=== PATIENT | female | born 1985 | race Caucasian/White ===

== ENCOUNTER 2024-12-22 12:09 | Inpatient (IN) | payer BC, SELFPAY ==
[2024-12-22] VITALS (51 sets, daily range): BP systolic 87–185; BP diastolic 56–111; BMI 34.6; BMI 34.5
[2024-12-22] MEDS: ZOFRAN 4 MG IV ×2 (00:58→05:24)
[2024-12-22] MEDS: DILAUDID 1 MG IV (00:59)
[2024-12-22 01:18] LABS: % Basophils 0.3 % (0-2); % Eosinophils 0.7 % (0-6); % Immature Granulocytes 0.4 % (0-0.5); % Lymphocytes 20.3 % (20.5-51.1); % Monocytes 4.9 % (1.7-9.3); % Neutrophils 73.4 % (42.2-75.2); Absolute Basophils 0.1 10^3/uL (0-0.2); Absolute Eosinophils 0.1 10^3/uL (0-0.7); Absolute Immature Granulocytes 0.1 10^3/uL (0-0.05); Absolute Lymphocytes 3.7 10^3/uL (1.2-3.4); Absolute Monocytes 0.9 10^3/uL (0.1-0.6); Absolute Neutrophils 13.2 10^3/uL (1.4-6.5); Hematocrit 44.3 % (37.0-47.0); Hemoglobin 15.8 g/dL (12.0-16.0); Mean Corp Hgb Conc. 35.7 g/dL (33.0-37.0); Mean Corpuscular Hgb 29.5 pg (27.0-31.0); Mean Corpuscular Volume 82.8 fL (81.0-99.0); Mean Platelet Volume 9.6 fL (7.4-10.4); Nucleated Red Blood Cells % 0 %; Platelet Count 237 10^3/uL (130-400); Red Blood Cell Count 5.35 10^6/uL (4.20-5.40); Red Cell Dist. Width 12.7 % (11.5-14.5)
[2024-12-22 01:22] LABS: ALT (SGPT) 25 U/L (0-35); AST (SGOT) 32 U/L (14-36); Albumin 5.3 g/dl (3.5-5.0); Alkaline Phosphatase 120 U/L (38-126); Blood Urea Nitrogen 11 mg/dl (7-17); Calcium 10.2 mg/dl (8.4-10.2); Carbon Dioxide 20 mmol/L (22-30); Chloride 104 mmol/L (98-107); Estimated Creatinine Clearance 110 ml/min; Glucose 154 mg/dl (70-99); Lipase 277 U/L (23-300); Potassium 3.4 mmol/L (3.5-5.1); Sodium 142 mmol/L (135-145); Total Bilirubin 1.1 mg/dl (0.2-1.3); Total Protein 8.8 g/dl (6.3-8.2); eGFR > 60.00
[2024-12-22 01:23] LABS: HCG, Serum Qualitative Screen Negative
[2024-12-22] MEDS: DILAUDID 0.5 MG IV ×3 (01:51→09:35)
[2024-12-22] MEDS: TORADOL 15 MG IV ×2 (02:20→04:50)
--- NOTE | 2024-12-22 02:47 | ED.GENMED ---
History of Present Illness
General
Chief Complaint: Abdominal Pain
Source: patient
Exam Limitations: none
Time Seen by Provider: 12/22/24 00:55
Nursing documentation reviewed up to this point in time: agreed with
History of Present Illness
History of Present Illness:
39-year-old female presents to the emergency department with left lower quadrant abdominal pain and nausea. She states that this occurred this evening. She states that she has had prior kidney stones in the past but this feels more severe. Does
report some nausea with vomiting she also denies fever or chills.. Denies previous abdominal issues throughout the day. Was seen in the emergency department in 2020 for similar pain except on the other side.
Past History
Past History
ED Past Medical History: Asthma, HTN, Psychiatric (Bipolar disorder), Other (Kidney stones, bladder tumor removal) and Other (Migraine headaches)
ED Past Surgical History: Gynecological (Laparoscopy for ectopic ), Tonsilectomy and Urological (T tumor removal)
Social History
Tobacco: Vaping
Alcohol: Occasional
Drug: None
Personal: Single
Living: with family
Employment: Employed
Family History
Family History: Other (Noncontributory)
Review of Systems
Review of Systems
Allergies reviewed?: Yes
All Other Systems: ROS reviewed and negative except as documented in HPI and ROS
ABD/GI: Reports abdominal pain (Diffuse)
: Reports flank pain and urgency
Phy Exam
General Physical Exam
General Presentation: well appearing and moderate distress
General Skin: warm and dry
General Habitus: normal
General Mental: alert
General Hydration: appears well hydrated
ENT Exam
ENT Exam: EOMI, pharynx normal, neck supple and normocephalic
Eye Exam
Eye Exam: PERRL, cornea clear and conjunctiva normal
Cardiovascular Exam
Cardiovascular Exam: regular rate/rhythm
Pulmonary Exam
Pulmonary Exam: lungs clear, no respiratory distress, no rales, no crackles, no rhonchi, no stridor, no wheezing and no cough
Gastrointestinal Exam
Gastrointestinal Exam: normal bowel sounds, soft, no organomegaly, no pulsatile mass, non distended and cva tenderness (Left-sided)
Palpation: left lower quadrant: Minimal tenderness
Neurological Exam
Neurological Exam: alert, oriented x3, no motor deficits and speech normal
Musculoskeletal Exam
Musculoskeletal Exam: full ROM and no edema
Skin Exam
Skin Exam: normal color, warm/dry, no rash and no petechia
Psychiatric Exam
Psychiatric Exam: normal mood/affect
Course
Orders/Labs/Results
Orders:
Orders
12/22/24 00:28
Test Result ONCE
12/22/24 00:55
HYDROmorphone [Dilaudid] 1 mg .ROUTE .STK-MED ONE
HYDROmorphone [Dilaudid] 1 mg IV NOW STA
Ondansetron Injectable [Zofran] 4 mg .ROUTE .STK-MED ONE
Ondansetron Injectable [Zofran] 4 mg IV NOW STA
12/22/24 00:57
CT Abd/pelvis W Iv Cont Urgent
Comment:
Reason For Exam: left lower abd pain, vomiting, soft stool
12/22/24 01:02
Complete Blood Count/With Diff Urgent
Comprehensive Metabolic Panel Urgent
HCG, Serum Qualitative Screen Urgent
Lipase Urgent
12/22/24 01:49
HYDROmorphone [Dilaudid] 0.5 mg .ROUTE .STK-MED ONE
12/22/24 01:50
HYDROmorphone [Dilaudid] 0.5 mg IV NOW STA
12/22/24 02:15
Ketorolac [Toradol] 15 mg .ROUTE .STK-MED ONE
12/22/24 02:19
Ketorolac [Toradol] 15 mg IV NOW STA
12/22/24 03:18
Urinalysis Reflex To Culture Urgent
Date Specimen was Collected: 12/22/24
Time Specimen was Collected: 03:03
Urine Microscopic Reflex Cult Urgent
Urine Culture Urgent
ILANA Source: U
Specimen Description:
Date Specimen was Collected: 12/22/24
Time Specimen was Collected: 03:03
12/22/24 04:47
Ketorolac [Toradol] 15 mg .ROUTE .STK-MED ONE
12/22/24 04:49
Ketorolac [Toradol] 15 mg IV NOW STA
12/22/24 05:21
Ondansetron Injectable [Zofran] 4 mg .ROUTE .STK-MED ONE
12/22/24 05:23
Ondansetron Injectable [Zofran] 4 mg IV NOW STA
12/22/24 06:35
LevoFLOXacin 500 MG/100 ML [Levaquin] 500 mg in 100 ml IV NOW
Abnormal Lab Results
12/22/24 12/22/24
01:02 03:18
WBC 18.0 H 10^3/uL
(4.8-10.8)
Abs Immat Gran (auto) 0.1 H 10^3/uL
(0-0.05)
Absolute Neuts (auto) 13.2 H 10^3/uL
(1.4-6.5)
Absolute Lymphs (auto) 3.7 H 10^3/uL
(1.2-3.4)
Absolute Monos (auto) 0.9 H 10^3/uL
(0.1-0.6)
Lymphocytes % 20.3 L %
(20.5-51.1)
Potassium 3.4 L mmol/L
(3.5-5.1)
Carbon Dioxide 20 L mmol/L
(22-30)
Glucose 154 H mg/dl
(70-99)
Total Protein 8.8 H g/dl
(6.3-8.2)
Albumin 5.3 H g/dl
(3.5-5.0)
Urine Ketones 1+ A
(Negative)
Ur Occult Blood Reflex 2+ A
(Negative)
Leukocyte Esterase Rfl 1+ A
(Negative)
Urine RBC 3-6 A /HPF
(0-2)
Urine WBC (Reflex) 16-20 A /HPF
(0-5)
Urine Bacteria (Reflex) Few A
(Negative)
12/22/24 01:02
12/22/24 01:02
Vital Signs
Initial and Last Documented VS:
Initial Vital Signs
Temp Pulse Resp Pulse Ox
97.7 F 98 28 99
12/22/24 00:10 12/22/24 00:10 12/22/24 00:10 12/22/24 00:10
Last Documented Vital Signs
Temp Pulse Resp BP Pulse Ox
97.7 F 98 28 138/105 97
12/22/24 00:10 12/22/24 00:10 12/22/24 00:10 12/22/24 07:00 12/22/24 07:00
*Critical Care Note
Total Time (30-74mins, 75-104mins- exclusive of procedures): Not Applicable
Update Note
Update Note:
CT abdomen and pelvis with IV contrast
IMPRESSION:
Obstructing 6 mm calculus in the distal third of the left ureter with associated mild left hydronephrosis and delayed nephrogram with associated perinephric free fluid. No additional nephrolithiasis.
Appendix is normal. DJD and DDD.
Despite multiple rounds of pain medication, patient still having pain.
Spoke with Dr. Guaman. Urology who will take patient to the operating room.
ED Attending Note
-
Portions of this chart may have been created with voice recognition software.� Occasional wrong word or��sound alike� substitutions may have occurred due to the inherent limitations of voice recognition software.
Discharge Plan
Departure
Patient Disposition: OR
Date of Disposition: 12/22/24
Time of Disposition: 06:43
Admit to: OR
Presentation/result/management discussed w/ accepting MD/DO: Deniz
Condition: Fair
Discharge Problem:
Calculus of ureter, Acute flank pain
Prescriptions:
No Action
Amlodipine Besylate
10 mg PO DAILY
Cetirizine HCl
10 mg PO BID
Hydrochlorothiazide
12.5 mg PO DAILY
Propranolol
20 mg PO DAILY
Topamax:
25 mg PO DAILY
ibuprofen 800 MG tablet
800 mg PO QIDPRN PRN (Reason: pain, take with food) Qty: 30 0RF
Referrals:
Cody Riddle MD [Family Provider] -
Interventions
Interventions:
*Risk Screen - Suicide Last Done: 12/22/24 00:10
*General Assessment Last Done: 12/22/24 07:14
LA-Rjgfkc-Xseqagsjsu Assessment Last Done: 12/22/24 07:13
Discharge Date and Time
Print Language: BERMUDIAN
[2024-12-22 03:27] LABS: Urine Albumin Negative (Neg - Trace); Urine Bilirubin Negative (Negative); Urine Character Clear (Clear); Urine Color Yellow; Urine Glucose Negative (Negative); Urine Ketone 1+ (Negative); Urine Leukocyte 1+ (Negative); Urine Nitrite Negative (Negative); Urine Occult Blood 2+ (Negative); Urine Urobilinogen Negative (Neg - 1+)
[2024-12-22 04:02] LABS: Urine Bacteria Few (Negative); Urine Squamous Cell 0-2 /LPF (Few); Urine White Cell 16-20 /HPF (0-5)
[2024-12-22] MEDS: LEVAQUIN 100 IV (06:42)
[2024-12-22] MEDS: NSS 1000 IV ×5 (07:54→21:09)
--- NOTE | 2024-12-22 09:20 | CM ---
Patient seen at bedside in ED. Patient stated that she lives alone. Patient home is a one story home with no steps to enter. Patient sister is at bedside. Patient has no DME at home. Patient dr. harvey. Patient uses the pharmacy of [facility] ([place]) and is
not currently driving. Patient states that she understands that she may have surgery today. CM will continue to follow for discharge planning needs.
Plan; home with no needs vs home with VN
--- NOTE | 2024-12-22 10:05 | HP.FOC2 ---
Focused History & Physical
Chief Complaint
HPI:
Chief Complaint:
left flank pain
HPI / Indication for Planned Procedure:
pt with established urologist at [facility]
hx of bladder tumor and stone
developed acute left renal colic- presented to our ER
ct with distal left ureteral stone
intractable pain and vomiting
Relevant Past Medical History: Diabetes and Other (obesity/stones/bladder tumor)
Relevant Social History: Negative
Relevant Family History: Negative
Relevant Past Surgical History: Positive for (stent and eswl/ extopic preg/ knee surgery/tonsillectomy)
Review of Systems
Review of Pertinent Systems: All Systems Negative Except for the Following Positives (nausea/vomiting/flank pain)
Medication
See Medication form for detailed medications: Yes
Medication List (including Herbals & OTC):
amlodipine 5 mg tablet 5 mg PO DAILY 12/22/24
atorvastatin 20 mg tablet 10 mg PO DAILY 12/22/24
cyanocobalamin (vitamin B-12) 1,000 mcg tablet (Vitamin B-12) 1,000 mcg PO DAILY 12/22/24
hydroxyzine HCl 10 mg tablet 10 mg PO HSPRN PRN insomnia 12/22/24
levocetirizine 5 mg tablet (Xyzal) 5 mg PO DAILY 12/22/24
norethindrone (contraceptive) 0.35 mg tablet 0.35 mg PO DAILY 12/22/24
omeprazole 20 mg capsule,delayed release 20 mg PO DAILY 12/22/24
tirzepatide 12.5 mg/0.5 mL subcutaneous pen injector (Mounjaro) 12.5 mg SC TH 12/22/24
Medications Reviewed: Yes
Allergies and Reactions
Patient has Allergies: Yes
Noted Allergies and Reactions:
Allergy/AdvReac Type Severity Reaction Status Date / Time
lamotrigine [From Lamictal] Allergy Rash Verified 12/22/24 00:10
Pertinent Physical Exam
All Other Systems: Negative
Head/Neck: Normal
Lungs: Normal
Heart: Normal
Abdomen: Normal
Extremities: Normal
Neurological: Normal
Diagnosis / Assessment
left ureteral stone and intractable pain
Plan / Procedure
to OR for ureteroscopy
risks, benefits, alternatives and disabilities reviewed
Anesthesia/Sedation to be done by Anesthesia Provider: Yes
--- NOTE | 2024-12-22 10:57 | W.IMMPOSTOP ---
Surgical Immed Post Op Note
-
Primary Surgeon:
rose
Assisting Surgeon:
Pre-op Diagnosis:
left ureteral stone
Post-op Diagnosis:
same
Procedure Performed:
cysto/left ureteroscopy/laser litho and stent
Anesthesia Type:
gen
Specimen / Cultures:
ucx
Estimated Blood Loss:
2cc
Complications:
none
Operative Findings:
impacted left ureteral stone- fragmented and removed- stent placed
pt with sig tachy during case- not febrile- but will admit for management/antibx- hospitalist consult
--- NOTE | 2024-12-22 11:23 | HPS.HSE ---
Addendum entered and electronically signed by Kendra Nunez MD 12/22/24 13:12:
BP trending down despite aggressive IVF hydration
d/t concern impending septic shock, admission upgraded to ICU
Levophed ordered prn
discussed with Scan Coordinator, Urology, RN
Original Note:
Family Physician
-
Family Physician: Cody Riddle MD
Chief Complaint
-
Left Flank pain
History of Present Illness
39 female history of obesity migraine asthma hypertension bipolar presented with left flank pain found on CT imaging to have 6 mm stone within the distal left ureter causing mild left hydronephrosis. Moderate amount of left perinephric stranding and
fluid. Additional punctate stone within the upper pole. Urology evaluated and took patient to OR for cysto/left ureteroscopy/laser litho and stent. Post-op care in PACU complicated with high fever 103.1 associate sinus tachy 140s. Likely sepsis.
BP stable. Lactic acid pending. After procedure and following pain medications, patient endorses, feeling well. Left flank pain/tenderness resolved at this time.
Medical History
Past Medical History
Past Medical History: Reports Other (as above)
Past Surgical History: Reports Other (as above)
Social History
Tobacco: Non-smoker
Alcohol: None
Drug: Marijuana
Living: Alone
Family History
Family History: Not pertinent (reviewed)
Allergies / Home Medications
Allergies reflects when Allergies were last updated in [facility].
Home Medications with original date entered in [facility]
Allergy/Medication List:
Allergies
Allergy/AdvReac Type Severity Reaction Status Date / Time
lamotrigine [From Lamictal] Allergy Rash Verified 12/22/24 00:10
Home Medications
amlodipine 5 mg tablet 5 mg PO DAILY 12/22/24
atorvastatin 20 mg tablet 10 mg PO DAILY 12/22/24
cyanocobalamin (vitamin B-12) 1,000 mcg tablet (Vitamin B-12) 1,000 mcg PO DAILY 12/22/24
hydroxyzine HCl 10 mg tablet 10 mg PO HSPRN PRN insomnia 12/22/24
levocetirizine 5 mg tablet (Xyzal) 5 mg PO DAILY 12/22/24
norethindrone (contraceptive) 0.35 mg tablet 0.35 mg PO DAILY 12/22/24
omeprazole 20 mg capsule,delayed release 20 mg PO DAILY 12/22/24
tirzepatide 12.5 mg/0.5 mL subcutaneous pen injector (Mounjaro) 12.5 mg SC TH 12/22/24
Review of Systems
-
A 12 point ROS was completed and negative except as noted: Yes
Constitutional: Reports Other (as below)
Physical Exam
Vital Signs
Vital Signs
Temp Pulse Resp BP Pulse Ox
99.0 F 129 20 138/102 99
12/22/24 09:06 12/22/24 09:06 12/22/24 09:06 12/22/24 09:06 12/22/24 09:06
Physical Exam
General: Other (as below)
Laboratory Results
-
Laboratory Results
Total Bilirubin 1.1 mg/dl (0.2-1.3) 12/22/24 01:02
AST 32 U/L (14-36) 12/22/24 01:02
ALT 25 U/L (0-35) 12/22/24 01:02
Alkaline Phosphatase 120 U/L (38-126) 12/22/24 01:02
Lipase 277 U/L (23-300) 12/22/24 01:02
Impression/Plan
-
ROS
General: Denies fever chills night sweats unexpected weight loss
Neuro: Denies seizure shaking loss of consciousness dizziness vertigo
Psych: denies depression hallucinations confusion manic episodes
Endocrine: Denies polyuria polydipsia polyphagia heat/cold intolerance
HEENT: Denies blindness visual disturbances epistaxis
Pulmonary: denies coughing hemoptysis sneezing sob dyspnea on exertion
Cardiovascular: denies chest pain palpitations leg swelling
Hematology: denies signs symptoms of anemia easy bruising/bleeding
Gastrointestinal: denies nausea vomiting diarrhea constipation hematemesis hematochezia melena
Genito-Urinary: endorses left sided flank pain since resolved denies retention incontinence dysuria
Musculoskeletal: denies joint pain weakness
Dermatology: denies rash laceration bruising
Physical Exam
General: No pallor, cyanosis, or jaundice. obese
HEENT: Throat clear. PERRLA Normocephalic atraumatic
NECK: Supple. No JVD Carotid Bruits
RESPIRATORY: Lungs clear to auscultation. No crackles wheezes stridor
CVS: S1, S2 normal. RRR. No murmur, rub or gallop.
ABDOMEN: Soft, non-tender. No distension. BS+/normal.
EXTREMITIES: No peripheral cyanosis or edema.
PERIOPERATIVE MANAGER: AOx3 conversant coherent
IMPRESSION:
39 female history of obesity migraine asthma hypertension bipolar presented with left flank pain found on CT imaging to have 6 mm stone within the distal left ureter causing mild left hydronephrosis. Moderate amount of left perinephric stranding and
fluid. Additional punctate stone within the upper pole. Urology evaluated and took patient to OR for cysto/left ureteroscopy/laser litho and stent. Post-op care in PACU complicated with high fever 103.1 associate sinus tachy 140s. Likely sepsis.
BP stable. Lactic acid pending. After procedure and following pain medications, patient endorses, feeling well. Left flank pain/tenderness resolved at this time.
PLAN:
#Severe sepsis secondary to complicated UTI
#Obstructing kidney stone left ureter status post urologic intervention
#Left ureter stent
IMU admit
Urology eval appreciated
follow blood and urine cultures
pain control
empiric zosyn
IVF
follow up lactate
trend wbc Temp
Tylenol prn
scheduled Toradol as per Urology
#HTN
cont home Amlodipine with holding parameters
#Insomnia
cont home prn hydroxyzine
dvt ppx scd
gi ppx protonix
full code
I spent a total of 80 minutes with the patient or on the floor. More than 50% of this time involved counseling and coordination of care.
[2024-12-22] MEDS: OFIRMEV 100 IV (11:42)
[2024-12-22 12:24] LABS: Lactic Acid 3.7 mmol/L (0.7-2.0)
[2024-12-22 12:25] LABS: Blood Urea Nitrogen 9 mg/dl (7-17); Calcium 7.8 mg/dl (8.4-10.2); Carbon Dioxide 21 mmol/L (22-30); Chloride 107 mmol/L (98-107); Estimated Creatinine Clearance 77 ml/min; Glucose 127 mg/dl (70-99); Potassium 3.5 mmol/L (3.5-5.1); Sodium 140 mmol/L (135-145); eGFR > 60.00
[2024-12-22] MEDS: ZOSYN 50 IV ×3 (12:29→23:41)
--- NOTE | 2024-12-22 13:09 | PTCARENOTE ---
1300 Dr Nunez was updated was patient's status as well as labs. Patient to be upgraded to ICU level of care, family updated.
[2024-12-22 13:15] LABS: Hematocrit 39.8 % (37.0-47.0); Hemoglobin 14.1 g/dL (12.0-16.0); Mean Corp Hgb Conc. 35.4 g/dL (33.0-37.0); Mean Corpuscular Volume 84.7 fL (81.0-99.0); Mean Platelet Volume 10.1 fL (7.4-10.4); Platelet Count 146 10^3/uL (130-400); Red Cell Dist. Width 12.9 % (11.5-14.5); White Blood Cell Count 8.1 10^3/uL (4.8-10.8)
--- NOTE | 2024-12-22 14:39 | CON.INTV ---
Consultation
Consultation Request
Date/Time Consultation Requested: 12/22
Date/Time Consultation Performed: 12/22
Reason for Consultation: Critical care
Medical History
-
History of Present Illness:
History obtained from the patient, family members at bedside and reviewing medical records. 39-year-old female with history of asthma, hypertension, bipolar disorder, history of nephrolithiasis with sepsis in the past, bladder cancer diagnosed 10
years ago treated at [facility], now presents with acute left flank pain, nausea, emesis for 12 hours. She denies any falls, chest pain, shortness of breath. She describes chills but denies fevers or night sweats. Patient had similar
episode exactly 4 years ago. Because of worsening symptoms, she brought herself in to [facility] where she was found to be afebrile, pulse 98, breathing 28, blood pressure 138/105, 99 imaging confirms 6 mm stone with mild left
hydronephrosis %. And perinephric fluid. Urology was consulted and patient was taken to the operating room, had cystoscopy left uteroscopy and laser lithotripsy with stent placement. Patient had tachycardia during the case and developed
hypotension in the PACU with systolic pressure in the 90s. For this reason patient was transferred to ICU for further management
Upon arrival, I observed her ambulating from the stretcher to the bathroom to urinate. With this heart rate in the 140s but she was without complaints.
Allergies reviewed (Lamictal)
.
PMH: Hypertension, history of asthma, history of nephrolithiasis with UTI/sepsis in 2020, history of bladder tumor removal 2014 in [place], laparoscopic surgery for ectopic , tonsillectomy
Past Medical History
Past Medical History: None (See above)
Past Surgical History: None (See above)
Social History
Tobacco: Smoker ([id number], smoked 3 packs a day, quit 2019, quit vaping 2021)
Alcohol: Occasional
Drug: None
Personal: Single
Living: Alone
Employment: Employed
Family History
Family History: Other (She is adopted)
Allergies / Home Medications
Allergies
Allergy/AdvReac Type Severity Reaction Status Date / Time
lamotrigine [From Lamictal] Allergy Rash Verified 12/22/24 00:10
Home Medications
�Medication �Instructions �Recorded �Confirmed �Last Taken �Type
amlodipine 5 mg tablet 5 mg PO DAILY 12/22/24 12/22/24 12/21/24 History
atorvastatin 20 mg tablet 10 mg PO DAILY 12/22/24 12/22/24 12/21/24 History
cyanocobalamin (vitamin B-12) 1,000 mcg PO DAILY 12/22/24 12/22/24 12/21/24 History
1,000 mcg tablet (Vitamin B-12)
hydroxyzine HCl 10 mg tablet 10 mg PO HSPRN PRN insomnia 12/22/24 12/22/24 Unknown History
levocetirizine 5 mg tablet (Xyzal) 5 mg PO DAILY 12/22/24 12/22/24 12/21/24 History
norethindrone (contraceptive) 0.35 0.35 mg PO DAILY 12/22/24 12/22/24 12/21/24 History
mg tablet
omeprazole 20 mg capsule,delayed 20 mg PO DAILY 12/22/24 12/22/24 12/21/24 History
release
tirzepatide 12.5 mg/0.5 mL 12.5 mg SC TH 12/22/24 12/22/24 12/21/24 History
subcutaneous pen injector
(Mounjaro)
Review of Systems
-
All other systems: Negative unless noted
Vitals / Labs / Diagnostic Testing
Vital Signs
Temp Pulse Resp BP Pulse Ox
100.2 F 119 18 105/78 96
12/22/24 12:50 12/22/24 14:00 12/22/24 14:00 12/22/24 14:00 12/22/24 14:00
Lab Data
12/22/24 11:50
12/22/24 11:50
Diagnostic Testing:
Physical Exam
-
HEENT: Normocephalic, Anicteric and Other (Dry mucosa)
Cardiovascular: S1/S2, Regular Rhythm (Tachycardia), Murmur (n), Rub (n), Peripheral Edema (n) and Calf Tenderness (n)
Respiratory: Wheeze (n), Rales (n), Rhonchi (n) and Non-Labored Respirations
GI: Soft, Non Distended and Tender (Left upper quadrant tenderness, no rebound)
Neurology: Awake, Alert, Oriented and No Motor Deficits (Moves all extremities, able to sit up without assistance, observed ambulating)
Skin: Good Color (Mild pallor, no skin rash)
General: Comfortable (Conversant)
Assessment
-
39-year-old female with acute onset left flank pain found to have 6 mm stone with distal left ureter perinephric stranding, hydronephrosis, status post cystoscopy/left ureteroscopy/laser lithotripsy, stent with postoperative fever, tachycardia and
borderline hypotension. Patient was given IV fluids, transferred to ICU. She did not require pressors. We are asked out from critical care standpoint 12/22/24
Tachycardia, hypotension
Temperature 103, systolic pressure 90s
Postoperatively
Impacted left ureteral stone
s/p cystoscopy/lithotripsy/stent placement 12/22/24
Acute left flank pain x 12 hours with nausea/emesis
Sinus tachycardia
Elevated lactate
Conditions present prior to admission
History of recurrent UTI
History of nephrolithiasis
40+ pack year history of smoking
Quit 2019
History of bladder cancer diagnosed 2014
History of tonsillectomy
100 pound weight loss, intentional
Mounjaro
Plan/recommendations
At this time, patient is critically ill but stable
Blood pressure 140s postoperatively but went down to the 90s in the PACU, heart rate in the 140s. This is in the setting of fever of 103
Patient received IV fluids
Fortunately, she did not require pressors
Observed ambulating from the bed to the bathroom in the ICU, heart rate 140s without lightheadedness, chest pain or shortness of breath
Left upper quadrant pain noted on exam, no rebound abdominal CT reviewed. Lung bases are clear. Moderate left perinephric stranding with mild hydronephrosis
Moving forward
Continue with IV fluids
May require intermittent bolus. Patient with dry mucosa, likely component of prerenal/dehydrated state in the setting of sepsis
Chest exam is clear
Left upper quadrant pain noted, no rebound
Presently on Zosyn therapy
Follow cultures
Await EKG, chest x-ray
GI prophylaxis: Remains on Protonix
DVT prophylaxis: Mechanical prophylaxis for now. Would start pharmacological prophylaxis when cleared by urology
Patient describes 100 pound weight loss intentional secondary to Mounjaro treatment
Patient also describes significant smoking history, fortunately quit 2019
Reviewed with critical care nursing, primary service
Reviewed with family (mother/aunt) at bedside
All questions answered
TCCT 31 min
--- NOTE | 2024-12-22 14:40 | PTCARENOTE ---
Vital signs saved from PACU.
--- NOTE | 2024-12-22 14:45 | PTCARENOTE ---
Pt received from PACU. Ox3 and appropriate, she complains of some pain in her ABD that is worse with palpation. Sinus tach on tele, rate goes into the 140's with exertion. BP stable, pressors not required, maintenance fluids infusing. Pt is
urinating with some mild pain, she is also passing some small stone fragments. Answered all questions, pt makes needs known.
[2024-12-22 14:55] LABS: Glucose - Point of Care 134 mg/dl (70-99)
[2024-12-22] MEDS: NSS (PRESERVATIVE FREE) 10 ML IV (15:38)
[2024-12-22] MEDS: Pyridium 100 MG PO ×2 (15:38→23:41)
[2024-12-22] MEDS: PROTONIX IV 40 MG IV (15:38)
[2024-12-22] MEDS: DETROL LA PO (15:38)
[2024-12-22] MEDS: TORADOL IV (15:38)
--- NOTE | 2024-12-22 15:57 | W.PN.URO.CBU ---
Today's Communication / Plan
-
ICU
Assessment / Plan
-
obstructing stone
s/p left ureteroscopy/stone removal and stent
post op sepsis
pt stable
reviewed plan of care with pt and family
contiune fluid support/antibx and await cx's
Diagnosis
-
Date of Service: December 22, 2024
-
Patient Diagnosis:
stone
post op sepsis
Post Op Day:
left ureteroscopy/laser litho and stent 12/22
Subjective
-
post op pt developed high fever/tachy and mild hypotension
moved to ICU
responded to fluid bolus/supportive care
awake/pain and nausea much improved
bp's table
mildly tachy
cx's pending
on
zosyn
Objective
-
Vital Signs
Temp Pulse Resp BP Pulse Ox
98.4 F 110 27 118/70 95
12/22/24 15:47 12/22/24 14:34 12/22/24 14:34 12/22/24 14:34 12/22/24 14:00
Intake and Output
12/21/24 12/22/24 12/23/24
06:59 06:59 06:59
Intake Total 1750 / 1750
Output Total 250 / 250
Balance 1500 / 1500
Intake:
IV fluids (Total) 1750 / 1750
NSS 1600 / 1600
Ofirmev 100 / 100
Zosyn 50 / 50
Output:
Urine, Voided 250 / 250
Laboratory Results
12/22/24 11:50
12/22/24 11:50
Review of Systems
-
Constitutional: Fever and Fatigue
Respiratory: No Symptoms
Cardiac: No Symptoms
Abdomen/GI: No Symptoms
: Frequency
Physical Exam
-
General - no acute distress
Abdomen - soft, non-tender
[2024-12-22] MEDS: TORADOL 30 MG IV (18:22)
[2024-12-22 18:28] LABS: Vitamin D, 25-OH*** 35.1 ng/mL (30-80)
[2024-12-22 18:38] LABS: Lactic Acid 1.3 mmol/L (0.7-2.0)
--- NOTE | 2024-12-22 20:00 | PTCARENOTE ---
rec`d pt at 1900 AAOx3. assessment as documented. assist x1 to the bathroom. SR to ST. afebrile. RA. PIVS flushed and patent. NS at 120hr. call phillips in reach, safe environment maintained.
[2024-12-22] MEDS: COLACE 100 MG PO (21:09)
[2024-12-22] MEDS: ATARAX 10 MG PO (21:20)
[2024-12-23] VITALS (14 sets, daily range): BP systolic 96–139; BP diastolic 62–91; BMI 34.3
--- NOTE | 2024-12-23 04:00 | PTCARENOTE ---
pt reassessed. no changes in pt assessment. call phillips in reach. pt used bathroom several times w/ 1x assist.
[2024-12-23 04:51] LABS: Hemoglobin 12.9 g/dL (12.0-16.0); Mean Corp Hgb Conc. 35.8 g/dL (33.0-37.0); Mean Corpuscular Hgb 30.1 pg (27.0-31.0); Mean Corpuscular Volume 84.1 fL (81.0-99.0); Mean Platelet Volume 10.3 fL (7.4-10.4); Platelet Count 149 10^3/uL (130-400); Red Blood Cell Count 4.28 10^6/uL (4.20-5.40); Red Cell Dist. Width 13.2 % (11.5-14.5); White Blood Cell Count 27.8 10^3/uL (4.8-10.8)
[2024-12-23] MEDS: TORADOL 30 MG IV ×3 (05:17→20:59)
[2024-12-23] MEDS: ZOSYN 50 IV ×4 (05:19→23:30)
[2024-12-23 05:25] LABS: Blood Urea Nitrogen 12 mg/dl (7-17); Calcium 8.5 mg/dl (8.4-10.2); Carbon Dioxide 21 mmol/L (22-30); Chloride 110 mmol/L (98-107); Estimated Creatinine Clearance 109 ml/min; Glucose 128 mg/dl (70-99); Magnesium 1.8 mg/dl (1.6-2.3); Potassium 3.5 mmol/L (3.5-5.1); Sodium 142 mmol/L (135-145); eGFR > 60.00
--- NOTE | 2024-12-23 06:26 | W.PN.HOSP.TC ---
Today's Communication/Plan
-
downgrade to Tele
cont abx
reduce IVF rate to 80 cc/h
follow cultures
pain control
Assessment / Plan
Assessment / Plan
Physical Exam
General: No pallor, cyanosis, or jaundice. obese
HEENT: Throat clear. PERRLA Normocephalic atraumatic
NECK: Supple. No JVD Carotid Bruits
RESPIRATORY: Lungs clear to auscultation. No crackles wheezes stridor
CVS: S1, S2 normal. RRR. No murmur, rub or gallop.
ABDOMEN: Soft, non-tender. No distension. BS+/normal.
EXTREMITIES: No peripheral cyanosis or edema.
ATHLETIC SCOUT: AOx3 conversant coherent
IMPRESSION:
39 female history of obesity migraine asthma hypertension bipolar presented with left flank pain found on CT imaging to have 6 mm stone within the distal left ureter causing mild left hydronephrosis. Moderate amount of left perinephric stranding and
fluid. Additional punctate stone within the upper pole. Urology evaluated and took patient to OR for cysto/left ureteroscopy/laser litho and stent. Post-op care in PACU complicated with high fever 103.1 associate sinus tachy 140s. Likely sepsis.
BP stable. Lactic acid elevated since resolved. After procedure and following pain medications, patient endorsed, feeling well. Transferred to ICU due to concerns impending shock with BP trending down. Patient however never required pressor
support and was soon downgraded to Tele after overnight monitoring in ICU.
PLAN:
#Severe sepsis secondary to complicated UTI
#Obstructing kidney stone left ureter status post urologic intervention
#Left ureter stent
ICU admit from PACU, downgrade to Tele
Urology eval appreciated
blood cultures NGTD
urine cx prelim pos gram neg bacili, follow
pain control
cont zosyn
cont IVF reduce rate from 120 to 80, tolerating diet
Lactic acidosis 3.5 resolved w/ IVF
trend wbc Temp
Tylenol prn
scheduled Toradol as per Urology
#HTN
cont home Amlodipine with holding parameters
#Insomnia
cont home prn hydroxyzine
dvt ppx scd
gi ppx protonix
full code
Medically stable for downgrade
Discussed with patient. Offered to update family, patient declined reporting able to update them herself.
I spent a total of 50 minutes with the patient or on the floor. More than 50% of this time involved counseling and coordination of care.
Anticipated Discharge: 24 - 48 hours
Subjective/Interval History
-
Date of Service: December 23, 2024
No acute distress sitting up comfortably in bed. Reports overall feeling well. Left flank pain persists but manageable with current pain regimen.
Objective Data
-
Labs:
Laboratory Results
12/23/24
04:32
WBC 27.8 H
Hgb 12.9
Hct 36.0 L
Plt Count 149
Sodium 142
Potassium 3.5
Chloride 110 H
Carbon Dioxide 21 L
BUN 12
Creatinine 0.7
Glucose 128 H
Calcium 8.5
Vital Signs:
Vital Signs
Temp Pulse Resp BP Pulse Ox
97.9 F 73 22 119/88 100
12/23/24 03:07 12/23/24 05:45 12/23/24 05:45 12/23/24 05:00 12/22/24 20:00
I&O
12/21/24 12/22/24 12/23/24
06:59 06:59 06:59
Intake Total 3535 / 3535
Output Total 222 / 222
Balance 1310 / 1310
[2024-12-23] MEDS: NSS 1000 IV ×2 (06:39→20:59)
[2024-12-23] MEDS: MAGNESIUM SULFATE 102 GRAMS IV (07:50)
[2024-12-23] MEDS: KCL 160 MEQ IV (07:50)
[2024-12-23] MEDS: DETROL LA 4 MG PO (07:51)
[2024-12-23] MEDS: NORVASC PO (07:51)
[2024-12-23] MEDS: VITAMIN B-12 1000 MCG PO (07:51)
[2024-12-23] MEDS: ZYRTEC 10 MG PO (07:51)
[2024-12-23] MEDS: COLACE 100 MG PO ×2 (07:51→20:59)
[2024-12-23] MEDS: Pyridium 100 MG PO ×3 (07:51→23:31)
[2024-12-23] MEDS: PROTONIX IV 40 MG IV (07:52)
[2024-12-23] MEDS: NSS (PRESERVATIVE FREE) 10 ML IV (07:52)
[2024-12-23] MEDS: LIPITOR 10 MG PO (07:52)
--- NOTE | 2024-12-23 08:44 | W.PN.UPDATE ---
Update Note
Progress Note Update
stable for downgrade to Tele
--- NOTE | 2024-12-23 11:41 | W.PN.URO.CBU ---
Today's Communication / Plan
-
ivf awaitt cx eventual outpatine stent removal
Assessment / Plan
-
obstructing stone
s/p left ureteroscopy/stone removal and stent
post op sepsis
pt stable
reviewed plan of care with pt and family
contiune fluid support/antibx and await cx's
Diagnosis
-
Date of Service: December 23, 2024
-
Patient Diagnosis:
Post Op Day:
Patient Diagnosis:
stone
post op sepsis
Post Op Day:
left ureteroscopy/laser litho and stent 12/22
Subjective
-
stable no pressors tolerating stent
Objective
-
Vital Signs
Temp Pulse Resp BP Pulse Ox
98.5 F 86 18 111/78 100
12/23/24 07:00 12/23/24 09:15 12/23/24 08:45 12/23/24 08:00 12/22/24 20:00
Intake and Output
12/22/24 12/23/24 12/24/24
06:59 06:59 06:59
Intake Total 3655 / 3775 600 / 600
Output Total 2225 / 2225 50 / 50
Balance 1430 / 1550 550 / 550
Intake:
Oral fluids 480 / 480 240 / 240
IV fluids (Total) 3125 / 3245 360 / 360
NSS 1725 / 1725
Nss 1,000 ml @ 120 mls/hr IV . 1200 / 1320 360 / 360
Q8H20M NATHAN Rx#:[id number]
Ofirmev 100 / 100
Zosyn 100 / 100
IV piggybacks 50 / 50
Output:
Urine, Voided 2225 / 2225 50 / 50
Laboratory Results
12/23/24 04:32
12/23/24 04:32
Review of Systems
-
: Frequency, Flank Pain and Urgency
Physical Exam
-
General - well developed, well nourished, no acute distress
Chest - clear bilaterally
Abdomen - soft, non-tender, positive bowel sounds, no CVAT, no incisional pain or distention
Genitalia - normal
Rectal - normal
Skin - warm & dry with no rash
Neuro - AOx3, no motor deficits
Extremities - no clubbing, no cyanosis, no edema
Incision - clean, dry
Dressing - clean, dry, intact
Care Review
Data Reviewed
Discussed with: Nursing
CT Scan: Image Pers Reviewed
--- NOTE | 2024-12-23 12:44 | PTCARENOTE ---
Rec'd pt at 0700. Pt AAOx3, follows commands, OLSEN. Monitor SR. Lungs CTA. +BS, abd soft/nt. Ambulating to bathroom, voiding orange urine-urine strained after every void-no stones noted. Pt downgraded to tele, tele pack applied.
[2024-12-23] MEDS: MIRALAX 17 GRAMS PO (20:55)
[2024-12-24] MEDS: TORADOL 30 MG IV (03:05)
[2024-12-24 04:05] VITALS: BP 138/92
[2024-12-24] MEDS: ZOSYN 50 IV ×2 (05:40→12:45)
--- NOTE | 2024-12-24 06:48 | W.PN.HOSP.TC ---
Today's Communication/Plan
-
abx as per ID
Assessment / Plan
Assessment / Plan
Physical Exam
General: No pallor, cyanosis, or jaundice. obese
HEENT: Throat clear. PERRLA Normocephalic atraumatic
NECK: Supple. No JVD Carotid Bruits
RESPIRATORY: Lungs clear to auscultation. No crackles wheezes stridor
CVS: S1, S2 normal. RRR. No murmur, rub or gallop.
ABDOMEN: Soft, non-tender. No distension. BS+/normal. Mild left flank tenderness
EXTREMITIES: No peripheral cyanosis or edema.
PATTERNMAKER ALL AROUND: AOx3 conversant coherent
IMPRESSION:
39 female history of obesity migraine asthma hypertension bipolar presented with left flank pain found on CT imaging to have 6 mm stone within the distal left ureter causing mild left hydronephrosis. Moderate amount of left perinephric stranding and
fluid. Additional punctate stone within the upper pole. Urology evaluated and took patient to OR for cysto/left ureteroscopy/laser litho and stent. Post-op care in PACU complicated with high fever 103.1 associate sinus tachy 140s. Likely sepsis.
BP stable. Lactic acid elevated since resolved. After procedure and following pain medications, patient endorsed, feeling well. Transferred to ICU due to concerns impending shock with BP trending down. Patient however never required pressor
support and was soon downgraded to Tele after overnight monitoring in ICU.
PLAN:
#Severe sepsis secondary to complicated UTI
#Obstructing kidney stone left ureter status post urologic intervention
#Left ureter stent
ICU admit from PACU, downgrade to Tele
Urology eval appreciated
blood cultures NGTD
urine and blood cx prelim pos gram neg bacili, follow
ID eval appreciated zosyn narrowed to cefazolin
pain control
cont zosyn
tolerating diet
Lactic acidosis 3.5 resolved w/ IVF since completed
trend wbc Temp
Tylenol prn
scheduled Toradol as per Urology
#HTN
cont home Amlodipine with holding parameters
#Insomnia
cont home prn hydroxyzine
dvt ppx scd
gi ppx protonix
full code
Medically stable for downgrade
Discussed with patient. Offered to update family, patient declined reporting able to update them herself.
I spent a total of 45 minutes with the patient or on the floor. More than 50% of this time involved counseling and coordination of care.
Anticipated Discharge: Within 24 hours
Subjective/Interval History
-
Date of Service: December 24, 2024
no acute distress appears relatively comfortable though frustrated with length of stay.
Objective Data
-
Labs:
Laboratory Results
12/24/24
05:49
WBC Pending
Hgb Pending
Hct Pending
Plt Count Pending
Sodium Pending
Potassium Pending
Chloride Pending
Carbon Dioxide Pending
BUN Pending
Creatinine Pending
Glucose Pending
Calcium Pending
Vital Signs:
Vital Signs
Temp Pulse Resp BP Pulse Ox
98.3 F 79 18 138/92 98
12/24/24 04:05 12/24/24 04:05 12/24/24 04:05 12/24/24 04:05 12/24/24 04:05
I&O
12/22/24 12/23/24 12/24/24
06:59 06:59 06:59
Intake Total 3655 / 3775 4060 / 4060
Output Total 2225 / 2225 1200 / 1200
Balance 1430 / 1550 2860 / 2860
[2024-12-24 07:20] VITALS: BP 147/94
[2024-12-24] MEDS: Pyridium 100 MG PO ×2 (07:30→16:15)
[2024-12-24] MEDS: LIPITOR 10 MG PO (07:31)
[2024-12-24] MEDS: COLACE 100 MG PO (07:31)
[2024-12-24] MEDS: DETROL LA 4 MG PO (07:31)
[2024-12-24] MEDS: NORVASC 5 MG PO (07:31)
[2024-12-24] MEDS: VITAMIN B-12 1000 MCG PO (07:32)
[2024-12-24] MEDS: NSS (PRESERVATIVE FREE) 10 ML IV (07:32)
[2024-12-24] MEDS: ZYRTEC 10 MG PO (07:32)
[2024-12-24 07:33] LABS: Hematocrit 34.4 % (37.0-47.0); Hemoglobin 12.1 g/dL (12.0-16.0); Mean Corp Hgb Conc. 35.2 g/dL (33.0-37.0); Mean Corpuscular Hgb 30.3 pg (27.0-31.0); Mean Platelet Volume 11.6 fL (7.4-10.4); Platelet Count 133 10^3/uL (130-400); Red Cell Dist. Width 13.3 % (11.5-14.5); White Blood Cell Count 17.3 10^3/uL (4.8-10.8)
[2024-12-24] MEDS: PROTONIX IV 40 MG IV (07:34)
[2024-12-24 07:57] LABS: Blood Urea Nitrogen 11 mg/dl (7-17); Calcium 8.4 mg/dl (8.4-10.2); Carbon Dioxide 26 mmol/L (22-30); Chloride 111 mmol/L (98-107); Estimated Creatinine Clearance 95 ml/min; Glucose 96 mg/dl (70-99); Magnesium 2.1 mg/dl (1.6-2.3); Phosphorus 2.6 mg/dl (2.5-4.5); Potassium 3.5 mmol/L (3.5-5.1); Sodium 145 mmol/L (135-145); eGFR > 60.00
--- NOTE | 2024-12-24 10:22 | W.PN.URO.CBU ---
Today's Communication / Plan
-
await sens but pt improving on broad spectrum iv abs pos blood cxs second set drawn this am on tx
Assessment / Plan
-
obstructing stone
s/p left ureteroscopy/stone removal and stent
post op sepsis
pt stable
reviewed plan of care with pt and family
contiune fluid support/antibx and await cx's
Diagnosis
-
Date of Service: December 24, 2024
-
Patient Diagnosis:
Post Op Day:
Patient Diagnosis:
Post Op Day:
Patient Diagnosis:
stone
post op sepsis
Post Op Day:
left ureteroscopy/laser litho and stent 4/
Subjective
-
feeling better
Objective
-
Vital Signs
Temp Pulse Resp BP Pulse Ox
97.8 F 79 16 138/92 97
12/24/24 07:20 12/24/24 07:31 12/24/24 07:20 12/24/24 07:31 12/24/24 07:20
Intake and Output
12/23/24 12/24/24 12/25/24
06:59 06:59 06:59
Intake Total 3655 / 3775 4060 / 4060
Output Total 2225 / 2225 1200 / 1200
Balance 1430 / 1550 2860 / 2860
Intake:
Oral fluids 480 / 480 1560 / 1560
IV fluids (Total) 3125 / 3245 2400 / 2400
NSS 1725 / 1725
Nss 1,000 ml @ 120 mls/hr IV . 1200 / 1320 1200 / 1200
Q8H20M NATHAN Rx#:[id number]
Ofirmev 100 / 100
Zosyn 100 / 100
IV piggybacks 50 / 50 100 / 100
Output:
Urine, Voided 2225 / 2225 1200 / 1200
Other:
Number of approximated MODERATE 3
amounts of urine
Laboratory Results
12/24/24 05:49
12/24/24 05:49
Review of Systems
-
: Dysuria and Frequency
Physical Exam
-
General - well developed, well nourished, no acute distress
Chest - clear bilaterally
Abdomen - soft, non-tender, positive bowel sounds, no CVAT, no incisional pain or distention
Genitalia - normal
Rectal - normal
Skin - warm & dry with no rash
Neuro - AOx3, no motor deficits
Extremities - no clubbing, no cyanosis, no edema
Incision - clean, dry
Dressing - clean, dry, intact
Counseling
-
per hospitalist
Care Review
Data Reviewed
Discussed with: Hospitalist and Nursing
[2024-12-24 11:24] VITALS: BP 144/92
[2024-12-24] MEDS: NSS IV ×2 (11:35)
[2024-12-24 14:53] VITALS: BP 155/90
--- NOTE | 2024-12-24 14:58 | CON.ID ---
Consultation
-
Date/Time Consultation Requested: 12/24/2024 1007
Date/Time Consultation Performed: 12/24/2024 1403
Requesting Provider: Dr. Nunez
Performing Provider: Dr. Hunter
Reason for Consultation: Complicated urinary tract infection; bacteremia
Chief Complaint / Past History
History of Present Illness
Blessing Wilkes is a 39-year-old female being evaluated at the request of Dr. Nunez in regards to a complicated urinary tract infection and bacteremia. History is obtained from chart review, along with patient interview.
The patient reports a prior history of nephrolithiasis and also a history of bladder CA in 2014 requiring a tumor resection. She has been followed closely by her urologist in [place]. She reports she was in her usual state of health until
approximately 48 hours ago. She got off work and was feeling well but at 11 PM that evening she had the acute onset of left flank discomfort with significant nausea and vomiting. When she was only dry heaving she drove herself to the hospital for
further evaluation. Here imaging revealed the presence of an obstructing left ureteral stone, along with marked leukocytosis. She was taken emergently to the OR and underwent cystoscopy, laser lithotripsy and stent placement. Blood cultures
obtained at the time of admission are now positive for E. coli, and Infectious Diseases is asked to comment upon further antimicrobial therapy.
At present, she reports feeling improved. She notes some left CVA tenderness at present. She denies any current fevers or chills. Nausea and vomiting has improved. She notes that she had been constipated, but is now having diarrhea after the
administration of Colace and MiraLAX.
Past History
Additional Past Medical History:
Hx bladder CA (2014)
Nephrolithiasis
Asthma
HTN
Bipolar disease
Migraines
Additional Past Surgical History:
Bladder tumor resection (2014)
Ectopic .
Allergy History:
lamotrigine [From Lamictal] Allergy (Verified 12/22/24 00:10)
Rash
Medications Reviewed: Yes
Current Antibiotics:
Zosyn 3.375 g IV every 6 hours
Social History
Tobacco: Vaping
Alcohol: Occasional
Drug: None
Personal: Single
Living: With Family
Employment: Employed
Family History
Family History: Not Pertinent
Review of Systems
Vital Signs
Temp Pulse Resp BP Pulse Ox
98.5 F 83 16 155/90 97
12/24/24 14:53 12/24/24 14:53 12/24/24 14:53 12/24/24 14:53 12/24/24 14:53
Physical Exam
Physical Exam
Constitutional: No Acute Distress, Comfortable and Non-toxic
Head: Normocephalic
Eyes: Pupils Equal, Pupils Round, No Conjunctival Hemorrhage and Sclera Anicteric
Oral: No Thrush and No Ulcers
Cardiovascular: S1/S2; Negative S3/S4
Pulmonary: Clear; Negative Wheezes, Rales or Rhonchi
Gastrointestinal: Soft, Non Tender, Non Distended and Normal Bowel Sounds
Genito-Urinary: CVA Tenderness (left)
Extremities: Negative Edema, Cyanosis or Erythema
Neurological: AO x 3
Psychological: Calm
.
Lab / Diagnostic Study Results
12/24/24 05:49
12/24/24 05:49
Abs Immat Gran (auto) 0.1 10^3/uL (0-0.05) H 12/22/24 01:02
Absolute Neuts (auto) 13.2 10^3/uL (1.4-6.5) H 12/22/24 01:02
Absolute Lymphs (auto) 3.7 10^3/uL (1.2-3.4) H 12/22/24 01:02
Absolute Monos (auto) 0.9 10^3/uL (0.1-0.6) H 12/22/24 01:02
Absolute Basos (auto) 0.1 10^3/uL (0-0.2) 12/22/24 01:02
Immature Gran % 0.4 % (0-0.5) 12/22/24 01:02
Neutrophils % 73.4 % (42.2-75.2) 12/22/24 01:02
Lymphocytes % 20.3 % (20.5-51.1) L 12/22/24 01:02
Monocytes % 4.9 % (1.7-9.3) 12/22/24 01:02
Eosinophils % 0.7 % (0-6) 12/22/24 01:02
Basophils % 0.3 % (0-2) 12/22/24 01:02
Lactic Acid Cancelled 12/22/24 23:30
Ur Squamous Epith Cells 0-2 /LPF (Few) 12/22/24 03:18
Microbiology Results
Micro:
12/22/24 11:52 Blood Culture - Preliminary
Blood/Venous Positive culture in progress
Gram Stain - GNR's
12/24/24 10:45 Blood Culture - Pending
Blood/Venous
12/22/24 10:10 Urine Culture - Final
Urine NO GROWTH
12/22/24 03:18 Urine Culture - Final
Urine Escherichia coli
12/24/24 10:10 Blood Culture - Pending
Blood/Venous
12/23/24 04:56 Blood Culture - Preliminary
Blood/Venous No Growth in 24 hours- Final report to follow
Urine Culture Final 12/22/24
CC: 80,000 CFU/ML Escherichia coli
Organism 1 Escherichia coli
1. Escherichia coli
M.I.C. RX
--------- ---
Amoxicillin/Potas. Clavulanate <=8/4 S
Ampicillin <=8 S
Ampicillin/Sulbactam <=4/2 S
Aztreonam <=4 S
Cefazolin <=2 S
Ertapenem <=0.5 S
Ciprofloxacin <=0.25 S
Gentamicin <=2 S
Meropenem <=1 S
Nitrofurantoin-Urine Only <=32 S
Piperacillin/Tazobactam <=8 S
Tetracycline <=4 S
Tobramycin <=2 S
Trimethoprim/Sulfamethoxazole <=2/38 S
Imaging:
12/22/2024 CT abdomen/pelvis with contrast: A 6 mm stone within the distal left ureter causing mild left hydronephrosis. There is a moderate amount of left perinephric stranding and fluid. Additional punctate stone within the upper pole of the left
kidney is noted. Please see full dictation for additional detail.
Assessment / Plan
Obstructive uropathy
Nephrolithiasis
Suspected left pyelonephritis
Bacteremia
Fever
Hx bladder CA (2014)
Nephrolithiasis
Asthma
HTN
Bipolar disease
Migraines
Recommendations:
Urine cultures reviewed, and reveal the presence of E. coli which is pansensitive.
Narrow antibiotics to cefazolin 2 g IV every 8hours.
Monitor white count & temperature curve.
If patient continues to clinically improve, can transition to oral cephalexin at the time of discharge.
Patient will require a full 14-day course of antibiotics, and close follow-up with Urology
[2024-12-24] MEDS: ANCEF 10 IV ×2 (16:15→23:36)
[2024-12-24] MEDS: COMPAZINE 10 MG IV (16:50)
[2024-12-24 20:10] VITALS: BP 153/95
[2024-12-24 23:38] VITALS: BP 133/86
[2024-12-25] MEDS: COMPAZINE 10 MG IV ×2 (00:51→08:57)
--- NOTE | 2024-12-25 01:00 | PTCARENOTE ---
Pt received 0000 dose of ancef. thirty minutes after Pt complained of nausea. 10mg of Compazine given. shortly after Pt vomited two moderate amounts of green/ yellow bile.
[2024-12-25 03:30] VITALS: BP 132/82
[2024-12-25 07:15] VITALS: BP 129/94
[2024-12-25 08:48] LABS: Blood Urea Nitrogen 8 mg/dl (7-17); Calcium 8.8 mg/dl (8.4-10.2); Carbon Dioxide 26 mmol/L (22-30); Chloride 106 mmol/L (98-107); Estimated Creatinine Clearance 95 ml/min; Glucose 76 mg/dl (70-99); Magnesium 1.9 mg/dl (1.6-2.3); Phosphorus 3.5 mg/dl (2.5-4.5); Potassium 3.5 mmol/L (3.5-5.1); Sodium 143 mmol/L (135-145); eGFR > 60.00
[2024-12-25 08:53] LABS: Hematocrit 39.2 % (37.0-47.0); Hemoglobin 13.9 g/dL (12.0-16.0); Mean Corp Hgb Conc. 35.5 g/dL (33.0-37.0); Mean Corpuscular Hgb 30.1 pg (27.0-31.0); Mean Corpuscular Volume 84.8 fL (81.0-99.0); Mean Platelet Volume 10.6 fL (7.4-10.4); Platelet Count 174 10^3/uL (130-400); Red Blood Cell Count 4.62 10^6/uL (4.20-5.40); Red Cell Dist. Width 13.1 % (11.5-14.5); White Blood Cell Count 9.8 10^3/uL (4.8-10.8)
[2024-12-25] MEDS: VITAMIN B-12 1000 MCG PO (08:53)
[2024-12-25] MEDS: DETROL LA 4 MG PO (08:53)
[2024-12-25] MEDS: ZYRTEC 10 MG PO (08:54)
[2024-12-25] MEDS: LIPITOR 10 MG PO (08:54)
[2024-12-25] MEDS: PROTONIX IV 40 MG IV (08:54)
[2024-12-25] MEDS: NORVASC PO (08:54)
[2024-12-25] MEDS: ANCEF 10 IV (08:55)
[2024-12-25] MEDS: NSS (PRESERVATIVE FREE) 10 ML IV (08:55)
[2024-12-25 11:15] VITALS: BP 131/96
--- NOTE | 2024-12-25 11:56 | CM ---
Pt for discharge today
Reports will have ride home
Plan - home no needs
--- NOTE | 2024-12-25 12:38 | W.PN.ID1 ---
Date of Service
Date of Service: December 25, 2024
Today's Communication
Continue antibiotics.
Assessment / Plan
Obstructive uropathy
Nephrolithiasis
Suspected left pyelonephritis
Bacteremia
Fever
Hx bladder CA (2014)
Nephrolithiasis
Asthma
HTN
Bipolar disease
Migraines
Recommendations:
Urine cultures reviewed, and reveal the presence of E. coli which is pansensitive.
Patient clinically improved.
Case discussed with Hospitalist Service. Okay to discharge on cephalexin 750 mg 4 times daily, to complete a 14-day course of antibiotics in total.
Chief Complaint
-: UTI and Bacteremia
Subjective / Review of Systems
Patient seen and examined. Reports feeling improved. Denies flank pain. Denies dysuria.
Vital Signs / Physical Exam
Vital Signs
Vital Signs
Temp Pulse Resp BP Pulse Ox
97.9 F 87 16 131/96 98
12/25/24 11:15 12/25/24 11:15 12/25/24 11:15 12/25/24 11:15 12/25/24 11:15
Physical Exam
Constitutional: No Acute Distress, Comfortable and Non-toxic
Eyes: Sclera Anicteric
Cardiovascular: S1/S2; Negative S3/S4
Pulmonary: Non Labored
Gastrointestinal: Soft, Non Tender, Non Distended and Normal Bowel Sounds
Genito-Urinary: Negative CVA Tenderness
Neurological: Awake and Alert
Psychological: Calm
Objective Data
Lab Data
Lab Results
12/25/24 06:58
12/25/24 06:58
Estimated Creat Clear 95 ml/min 12/25/24 06:58
Lactic Acid Cancelled 12/22/24 23:30
Total Bilirubin 1.1 mg/dl (0.2-1.3) 12/22/24 01:02
AST 32 U/L (14-36) 12/22/24 01:02
ALT 25 U/L (0-35) 12/22/24 01:02
Alkaline Phosphatase 120 U/L (38-126) 12/22/24 01:02
Most recent labs reviewed.
Micro Results:
12/24/24 10:45 Blood Culture - Preliminary
Blood/Venous No Growth in 24 hours- Final report to follow
12/24/24 10:10 Blood Culture - Preliminary
Blood/Venous No Growth in 24 hours- Final report to follow
12/22/24 11:52 Blood Culture - Preliminary
Blood/Venous Escherichia coli
Gram Stain - Preliminary
12/23/24 04:56 Blood Culture - Preliminary
Blood/Venous No Growth in 48 hours- Final report to follow
12/22/24 10:10 Urine Culture - Final
Urine NO GROWTH
12/22/24 03:18 Urine Culture - Final
Urine Escherichia coli
Urine Culture Final 12/22/24
CC: 80,000 CFU/ML Escherichia coli
Organism 1 Escherichia coli
1. Escherichia coli
M.I.C. RX
--------- ---
Amoxicillin/Potas. Clavulanate <=8/4 S
Ampicillin <=8 S
Ampicillin/Sulbactam <=4/2 S
Aztreonam <=4 S
Cefazolin <=2 S
Ertapenem <=0.5 S
Ciprofloxacin <=0.25 S
Gentamicin <=2 S
Meropenem <=1 S
Nitrofurantoin-Urine Only <=32 S
Piperacillin/Tazobactam <=8 S
Tetracycline <=4 S
Tobramycin <=2 S
Trimethoprim/Sulfamethoxazole <=2/38 S
Imaging:
12/22/2024 CT abdomen/pelvis with contrast: A 6 mm stone within the distal left ureter causing mild left hydronephrosis. There is a moderate amount of left perinephric stranding and fluid. Additional punctate stone within the upper pole of the left
kidney is noted. Please see full dictation for additional detail.
Care Review
Plan reviewed with: Physician (Hospitalist)
[2024-12-25 14:05] VITALS: BP 156/93
== END 2024-12-25 15:02 | disposition home or self-care (01) | DRG 854 ==
LOC: 2 SOUTH 12:09
PROVIDERS: Specialist; ADMITTING PHYSICIAN Internal Medicine; ATTENDING PHYSICIAN Internal Medicine; CONSULT PHYSICIAN Internal Medicine Critical Care Medicine; CONSULT PHYSICIAN Internal Medicine Infectious Disease; EMERGENCY PHYSICIAN Student in an Organized Health Care Education/Training Program; FAMILY PHYSICIAN Internal Medicine
PROC: 0T778DZ Dilation of Left Ureter with Intraluminal Device, Via Natural or Artificial Opening Endoscopic (ICD-10-PCS; 2024-12-22)
PROC: 0TC78ZZ Extirpation of Matter from Left Ureter, Via Natural or Artificial Opening Endoscopic (ICD-10-PCS; 2024-12-22)
DX: A41.51 Sepsis due to Escherichia coli [E. coli] (principal); E87.20 Acidosis, unspecified; N13.6 Pyonephrosis; N20.2 Calculus of kidney with calculus of ureter; B96.20 Unspecified Escherichia coli [E. coli] as the cause of diseases classified elsewhere; Z85.51 Personal history of malignant neoplasm of bladder; Z87.442 Personal history of urinary calculi; J45.909 Unspecified asthma, uncomplicated; I10 Essential (primary) hypertension; F31.9 Bipolar disorder, unspecified; G43.909 Migraine, unspecified, not intractable, without status migrainosus; E66.9 Obesity, unspecified; E11.9 Type 2 diabetes mellitus without complications; Z68.34 Body mass index [BMI] 34.0-34.9, adult; Z87.440 Personal history of urinary (tract) infections; R65.20 Severe sepsis without septic shock; M19.90 Unspecified osteoarthritis, unspecified site; G47.00 Insomnia, unspecified
CPT/HCPCS: 74018; 74177; 76000; 80048; 80053; 81003; 81015; 82306; 82962; 83605; 83690; 83735; 84100; 84703; 85025; 85027; 87040; 87077; 87086; 87149; 87186; 87205; 96361; 96365; 96375; 99285; C1758; C2617; Q9967